=== PATIENT | female | born 1985 | race Caucasian/White ===

== ENCOUNTER 2019-10-17 16:35 | Emergency (ER) | payer OTHER ==
[~2019-10-17] VITALS: Ht 165.1 cm; Wt 77.1 kg
== END 2019-10-17 22:25 | disposition home or self-care (01) ==
LOC: ER 16:35
DX: A90 Dengue fever [classical dengue] (principal)

== ENCOUNTER 2019-10-19 17:07 | Outpatient (CLI) | payer OTHER | END 2019-10-19 17:12 | disposition home or self-care (01) | LOC: LAB 17:07 | DX: A90 Dengue fever [classical dengue] (principal); D69.49 Other primary thrombocytopenia ==